=== PATIENT | female | born 1955 | race Caucasian/White ===

== ENCOUNTER → 2023-06-15 | Outpatient (CLI) | payer OTHER | END | disposition home or self-care (01) | LOC: RAH 12:41 | PROVIDERS: ATTEND Family Medicine | DX: N63.21 Unspecified lump in the left breast, upper outer quadrant (principal); N63.11 Unspecified lump in the right breast, upper outer quadrant; R92.1 Mammographic calcification found on diagnostic imaging of breast; R92.8 Other abnormal and inconclusive findings on diagnostic imaging of breast; Z98.82 Breast implant status | CPT/HCPCS: 76641; 77065; G0279; 77062; 77066 ==

== ENCOUNTER → 2023-07-26 | Outpatient (CLI) | payer OTHER ==
[2023-07-26 10:26] LABS: INR 0.94 (0.85-1.15)
[2023-07-26 10:28] LABS: PARTIAL THROMBOPLASTIN TIME 29.1 SEC (26.3-35.5)
== END | disposition home or self-care (01) ==
LOC: RAH 09:17
PROVIDERS: ATTEND Family Medicine
DX: D05.12 Intraductal carcinoma in situ of left breast (principal); N63.11 Unspecified lump in the right breast, upper outer quadrant; F17.210 Nicotine dependence, cigarettes, uncomplicated; M81.0 Age-related osteoporosis without current pathological fracture; E78.00 Pure hypercholesterolemia, unspecified; I34.1 Nonrheumatic mitral (valve) prolapse; Z79.01 Long term (current) use of anticoagulants; Z90.89 Acquired absence of other organs; Z98.890 Other specified postprocedural states; Z82.3 Family history of stroke; Z83.3 Family history of diabetes mellitus; Z80.1 Family history of malignant neoplasm of trachea, bronchus and lung; Z88.0 Allergy status to penicillin
CPT/HCPCS: 19083; 85610; 85730; 36415; 88305; 19084; 88342; 88341; 88361; A4215 ×5; A4648

== ENCOUNTER → 2024-04-05 | Outpatient (CLI) | payer OTHER | END | disposition home or self-care (01) | LOC: OIH 15:22 | PROVIDERS: ATTEND Internal Medicine | DX: J44.9 Chronic obstructive pulmonary disease, unspecified (principal); I25.10 Atherosclerotic heart disease of native coronary artery without angina pectoris; F17.200 Nicotine dependence, unspecified, uncomplicated; M47.814 Spondylosis without myelopathy or radiculopathy, thoracic region | CPT/HCPCS: 71046 ==

== ENCOUNTER → 2024-04-15 | Outpatient (CLI) | payer OTHER ==
[2024-04-15] MEDS: REGADENOSON 0.4 MG/5 ML PF SYG IVP SCH (12:44)
== END | disposition home or self-care (01) ==
LOC: RAH 08:45
PROVIDERS: ATTEND Internal Medicine
DX: I25.10 Atherosclerotic heart disease of native coronary artery without angina pectoris (principal); R94.31 Abnormal electrocardiogram [ECG] [EKG]; J44.9 Chronic obstructive pulmonary disease, unspecified; F17.200 Nicotine dependence, unspecified, uncomplicated
CPT/HCPCS: 78452; 96374; 93017; J2785; A9500 ×2

== ENCOUNTER → 2024-07-18 | Outpatient (CLI) | payer OTHER, MEDICARE ==
[~2024-07-18] MED LIST: IOHEXOL 350 MG/ML 100ML INFUS..BTL IV ONE; metoPROLOL tartRATE 1 MG/ML 5ML VIAL IV ONE
== END | disposition home or self-care (01) ==
LOC: RAH 13:28
PROVIDERS: ATTEND Student in an Organized Health Care Education/Training Program
DX: R94.39 Abnormal result of other cardiovascular function study (principal)
CPT/HCPCS: 75574; J3490; Q9967

== ENCOUNTER → 2024-07-19 | Outpatient (CLI) | payer OTHER, MEDICARE | END | disposition home or self-care (01) | LOC: SHCH 14:51 | PROVIDERS: ATTEND Student in an Organized Health Care Education/Training Program | DX: I34.1 Nonrheumatic mitral (valve) prolapse (principal) | CPT/HCPCS: 93306 ==

== ENCOUNTER → 2025-03-26 | Outpatient (CLI) | payer OTHER, MEDICARE ==
--- NOTE | 2025-03-27 08:37 | HMCIMG ---
Exam Type: [facility]IL[facility], MAMMO DX BILATERAL Clinical Information: HX OF BREAST CA Comparison: June 15, 2023 Technique: Mammogram with Tomosynthesis was performed with CC and MLO projections. FINDINGS: The breasts are heterogeneously dense, which may obscure small masses. No dominant mass or suspicious microcalcification identified. There is no nipple retraction or skin thickening. There is a cluster of microcalcifications, indeterminate, middle third left breast lateral retroareolar region which warrants further evaluation with spot magnification views and left breast ultrasound. IMPRESSION: There is a cluster of microcalcifications, indeterminate, middle third left breast lateral retroareolar region which warrants further evaluation with spot magnification views and left breast ultrasound. BI-RADS: CATEGORY 0: INCOMPLETE. NEED ADDITIONAL IMAGING EVALUATION.
== END | disposition home or self-care (01) ==
LOC: RAH 14:38
PROVIDERS: ATTEND Internal Medicine
DX: R92.333 Mammographic heterogeneous density, bilateral breasts (principal); R92.0 Mammographic microcalcification found on diagnostic imaging of breast; Z85.3 Personal history of malignant neoplasm of breast
CPT/HCPCS: 77062; 77066

== ENCOUNTER → 2025-04-15 | Outpatient (CLI) | payer OTHER, MEDICARE ==
[~2025-04-15] MED LIST changes: -IOHEXOL 350 MG/ML 100ML INFUS..BTL IV ONE; +L.AC1CAP6 PO; +LETR2.5T7 PO; +MULT-1367 PO; +ROSUVASTATIN PO; -metoPROLOL tartRATE 1 MG/ML 5ML VIAL IV ONE
[2025-04-15 08:44] LABS: IMMATURE GRANULOCYTE ABSOLUTE 0.02 K/uL (0-1); NUCLEATED RED BLOOD CELLS 0.0 % (0.0-0.19); PLATELET COUNT (AUTO) 212 K/uL (130-400); RED BLOOD CELL COUNT(AUTO) 4.50 MIL/uL (4.00-5.50); RED CELL DISTRIBUTION WIDTH 13.4 % (11.0-15.5); WHITE BLOOD COUNT (AUTO) 8.4 K/uL (4.8-10.8)
[2025-04-15 09:02] LABS: ASPARTATE AMINOTRANSFERASE 17.0 U/L (10-37); CREATININE 0.6 mg/dL (0.5-1.0); GLOMERULAR FILTR. RATE CALC 98.0 mL/min (>90); GLUCOSE,RANDOM 109.0 mg/dL (70-105); SODIUM SERUM 142.0 mmol/L (136-145); TOTAL PROTEIN, SERUM 7.5 g/dL (6.0-8.3); UREA NITROGEN, BLOOD 10.0 mg/dL (7-18)
[2025-04-15 09:25] LABS: INR 0.98 (0.85-1.15)
--- NOTE | 2025-04-15 09:25 | NUR ---
U/S GD LT BREAST BX PROCEDURE PERFORMED BY DR FAROOQ. PUNCTURE SITE LT BREAST AND PATIENT TOLERATED PROCEDURE WELL. SPECIMEN X 3 COLLECTED AND SENT TO LAB. END OF PROCEDURE AT 0905. BIOPSY NEEDLE REMOVED AND DRESSING APPLIED. BREAST TISSUE MARKER DEPLOYED. NO BLEEDING NOTED. DISCHARGE INSTRUCTIONS GIVEN TO PATIENT AND VERBALIZED UNDERSTANDING. DISCHARGED VIA AMBULATORY AAO X3 WITH NO C/O PAIN.
--- NOTE | 2025-04-15 17:19 | HMCIMG ---
Percutaneous ultrasound-guided biopsy of left breast lesion at 12:00 with placement of a biopsy marker postbiopsy. Clinical history: 60-year-old female with left breast masses the largest at 12:00 measuring 3.4 x 1.7 x 2.5 cm. The risk and benefits was explained to the procedure the risks include bleeding infection patient consented to procedure.. Procedure under ultrasound guidance the left breast lesion at 12:00 demonstrated there is multi lobulated hypoechoic lesion seen. Patient also has a breast implant. After sterile preparation. 1% Xylocaine was used for local anesthetic. Using 14-gauge Bard sheath was introduced into the left breast lesion. Using a coaxial technique with a 14-gauge Bard gun a total of 3 core biopsy specimen was obtained. Postbiopsy a biopsy marker was placed at the site. Postbiopsy CT demonstrated no bleeding. Patient tolerated procedure well. IMPRESSION: Percutaneous CT-guided biopsy of right breast mass at 12:00. Patient is to have follow-up unilateral left breast mammogram to verify the marker effacement.
== END | disposition home or self-care (01) ==
LOC: RAH 07:31
PROVIDERS: ATTEND Internal Medicine Hematology & Oncology
DX: N63.20 Unspecified lump in the left breast, unspecified quadrant (principal); C50.412 Malignant neoplasm of upper-outer quadrant of left female breast; Z79.01 Long term (current) use of anticoagulants
CPT/HCPCS: 19083; 80053; 85025; 85610; 85730; 88361; 36415; 88305; 88342; 88341; A4215 ×2; A4648

== ENCOUNTER 2025-04-22 06:10 | Day surgery (SDC) | payer OTHER, MEDICARE ==
[2025-04-22] VITALS (11 sets, daily range): BP systolic 106–139; BP diastolic 51–87; PULSE 63–86; RESP 12–18; TEMP 97.3–97.6
[~2025-04-22] VITALS: Ht 160 cm; Wt 55.8 kg
[2025-04-22] MEDS: 0.9%NACL 1000ML 1,000 ML IV ONE (06:52)
[2025-04-22] MEDS ORDERED: LIDOCAINE PF 100MG/5ML (2%) SYRINGE 5ML ONE (07:21)
== END 2025-04-22 09:08 | disposition home or self-care (01) ==
LOC: DAH 06:10 → ENDO 06:10
PROVIDERS: ATTEND Surgery
DX: R93.3 Abnormal findings on diagnostic imaging of other parts of digestive tract (principal); C44.520 Squamous cell carcinoma of anal skin; K57.30 Diverticulosis of large intestine without perforation or abscess without bleeding; K62.89 Other specified diseases of anus and rectum; K59.04 Chronic idiopathic constipation; M81.0 Age-related osteoporosis without current pathological fracture; E78.00 Pure hypercholesterolemia, unspecified; D49.0 Neoplasm of unspecified behavior of digestive system; Z86.73 Personal history of transient ischemic attack (TIA), and cerebral infarction without residual deficits; Z88.0 Allergy status to penicillin; Z87.891 Personal history of nicotine dependence; Z90.89 Acquired absence of other organs; Z98.890 Other specified postprocedural states; Z79.899 Other long term (current) drug therapy; Z53.8 Procedure and treatment not carried out for other reasons
CPT/HCPCS: 45380; J7030 ×2; J2003; J2704; A4620; A4215; A4223; A7002; A4222; A4221; A4663; A4606; J3490

== ENCOUNTER → 2025-05-08 | Outpatient (CLI) | payer OTHER, MEDICARE ==
[~2025-05-08] MED LIST changes: +IOHEXOL-350 75 ML VIAL IV ONE
--- NOTE | 2025-05-09 05:57 | HMCIMG ---
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 TECHNIQUE: Thin collimated axial CT images of the chest, abdomen, and pelvis were obtained, with sagittal and coronal reformatted images also submitted. CT scan is done according to ALARA (As Low As Reasonably Achievable). 75ml of IV contrast was administered. COMPARISON: X-ray dated April 06, 2024. FINDINGS: Chest: Mild centrilobular emphysema. No collapse or consolidation. A cyst in the right lower lobe measures 1.4 x 1.2 cm. A ground glass nodule measuring 7.5 x 7.5 mm in the apicoposterior segment of the left upper lobe. No pleural effusions. No pericardial effusion. The heart size is within normal limits. Coronary vessels and intrathoracic aorta are grossly normal. No supraclavicular or mediastinal lymphadenopathy. Few mildly enlarged lymph nodes at level I in the left axilla, the largest measuring 2.4 x 1.4 cm. No focal thyroid abnormality. No acute or suspicious osseous abnormality. Bilateral breast implants in situ. There is cutaneous thickening with two well-defined nodular lesions, with one of them showing punctate calcification in the medial aspect of the left breast. These measure approximately 2.1 x 2.0 cm and 1.4 x 1.8 cm. Abdomen and Pelvis: There is no focal abnormality appreciated within the liver, gallbladder, pancreas, spleen, adrenals, or kidneys. No discrete enhancing soft tissue thickening in the region of the anorectal canal. Mild rectosigmoid diverticulosis. There is no obvious bowel wall thickening. Bowel loops are normal in caliber without evidence of obstruction or ileus. Unremarkable appendix. There is no abnormality within the urinary bladder. The uterus is post-menopausal. No adnexal lesion is seen. Atherosclerotic changes in the aorta. No lymphadenopathy. No free fluid. The bones under view show degenerative spondylotic changes in the spine. IMPRESSIONS: No discrete enhancing soft tissue thickening is observed in the anorectal region in the present study. Uncomplicated colonic diverticula. There are two heterogeneously enhancing nodular lesions in the medial aspect of the left breast with associated left axillary lymphadenopathy. The features concerning left breast neoplasm recommend tissue biopsy from the left breast lesions and dedicated breast imaging for further evaluation. Ground glass nodule in the left upper lobe. Recommended follow-up CT chest at 12 months. Comparison with the prior chest x-ray would be difficult due to technical limitations and differences. /[place]
== END | disposition home or self-care (01) ==
LOC: RAH 09:46
PROVIDERS: ATTEND Surgery
DX: C21.0 Malignant neoplasm of anus, unspecified (principal); J43.2 Centrilobular emphysema; K57.30 Diverticulosis of large intestine without perforation or abscess without bleeding; R91.1 Solitary pulmonary nodule; J98.4 Other disorders of lung; R59.0 Localized enlarged lymph nodes; N63.20 Unspecified lump in the left breast, unspecified quadrant; R92.1 Mammographic calcification found on diagnostic imaging of breast; M47.819 Spondylosis without myelopathy or radiculopathy, site unspecified; I70.0 Atherosclerosis of aorta; Z98.82 Breast implant status
CPT/HCPCS: 71260; 74177; Q9967

== ENCOUNTER → 2025-06-27 | Outpatient (CLI) | payer OTHER, MEDICARE ==
[~2025-06-27] MED LIST changes: -IOHEXOL-350 75 ML VIAL IV ONE
--- NOTE | 2025-06-28 08:09 | HMCIMG ---
EXAMINATION: SOFT TISSUE ULTRASOUND OF THE LEFT AXILLA. CLINICAL HISTORY: History of left breast carcinoma. COMPARISON: CT chest, abdomen and pelvis dated 05/08/2025. TECHNIQUE: Transverse and longitudinal images were obtained in the left axilla. FINDINGS: There are multiple lymph nodes that measure 4.1 x 2.0 x 3.6 cm, 2.2 x 1.2 x 1.6 cm, 1.4 x 0.9 x 1.0 cm, 1.8 x 1.0 x 1.0 cm, 1.0 x 0.8 x 0.8 cm, 1.4 x 0.9 x 0.8 cm in the left axilla in craniocaudal, AP, and transverse dimensions respectively. Hilar echoes are not well visualized. There is increased vascularity. IMPRESSION: Left axillary lymphadenopathy. Recommend biopsy correlation. /[place]
== END | disposition home or self-care (01) ==
LOC: RAH 14:22
PROVIDERS: ATTEND Internal Medicine Hematology & Oncology
DX: C50.412 Malignant neoplasm of upper-outer quadrant of left female breast (principal); C77.3 Secondary and unspecified malignant neoplasm of axilla and upper limb lymph nodes; C50.812 Malignant neoplasm of overlapping sites of left female breast; C21.1 Malignant neoplasm of anal canal; R22.32 Localized swelling, mass and lump, left upper limb; Z85.3 Personal history of malignant neoplasm of breast
CPT/HCPCS: 76882

== ENCOUNTER → 2025-07-02 | Outpatient (CLI) | payer OTHER, MEDICARE ==
--- NOTE | 2025-07-02 14:19 | HMCSR ---
APPROVED REPORT EXAM: Two-dimensional and M-mode echocardiogram with Doppler and color Doppler. INDICATION ICD: C50.412, N63.20,C77.3,C50.812,C21.1 2D Dimensions IVSd0.7 (0.7-1.1cm)LVEF(%)35.6 (>50%)LVED Vol(simp.)90.0 mL LVDd5.0 (3.8-5.6cm)FS(%)17 %LVES Vol(simp.)38.0 mL PWd0.6 (0.7-1.1cm)LA (2D)3.3 (1.6-4.0cm)LVEF(%, simp.)58 % IVSs0.8 cmAo Root(2D)2.7 (2.0-3.7cm)LA ESV INDEX (BP)47.19 mL/m2 LVDs4.1 (2.5-4.0cm)LVOT diam2.1 (1.8-2.4cm) PWs1.0 cmIVC diam1.6 cm Deformation Strain Apical 4-16.5 % Apical 2-16.9 % Apical 3-13.1 % Global Strain-15.5 % M-Mode Dimensions EPSS0.7 cm LA (MM)4.1 (1.6-4.0cm) Ao Root(MM)2.5 (2.0-3.7cm) Aortic Valve AoV Vmax1.2 m/Tea Peak GR5.4 mmHgLVOT Vmax0.7 m/s AoV VTI0.3 mAo Mean GR3.1 mmHgLVOT VTI0.18 m NAS (VMAX)2.11 cm2AVA (VTI) 2.3 cm2 Mitral Valve MV E Vmax88.1 cm/sDECEL Isij663 ms MV A Onrg164.4 cm/sP 1/2 T54 ms E/A ratio0.8MVA (PHT)4.1 cm2 TDI E/E' Wtzyyc65.0E/E' Zchszab51.6 Medial E' Peak V2.67 cm/sLateral E' Peak V4.28 cm/s Pulmonary Valve PV Vmax0.7 m/sPV VTI0.14 mPV Mean GR1.1 mmHg PV Peak GR1.9 mmHgPI End [place]. Oscar 112.7 cm/s Tricuspid Valve TR Vmax2.1 m/sRAP (EST) 3 scMbWOPU40.5 mmHg TR Peak GR18.5 mmHg Left Ventricle The left ventricle is normal size. GLS -16.0% There is normal left ventricular wall thickness. The LV EF is > 55%. Stage I diastolic dysfunction. Right Ventricle The right ventricle is normal size. The right ventricular systolic function is normal. Atria The left atrium is moderately dilated. Atrial septum is bowed toward the right. The right atrium size is normal. Aortic Valve The aortic valve opens well. No aortic regurgitation is present. There is no aortic valvular stenosis . Mitral Valve The mitral valve is mildly thickened. Mild annular calcification noted. Mitral valve leaflets are mid lly prolapsed. There is no mitral valve regurgitation noted. There is no mitral valve stenosis. Tricuspid Valve The tricuspid valve leaflets open well. Anterior tricuspid valve leaflet appears mildly prolapsed. Th ere is trace of tricuspid valve regurgitation noted. Pulmonic Valve The pulmonary valve is normal in structure. There is trace of pulmonic valvular regurgitation. Great Vessels The aortic root is normal in size. The IVC is normal in size and collapses >50% with inspiration. Pericardium There is no pericardial effusion. Other Information Quality : Adequate Conclusion The LVEF is > 55%. Stage I diastolic dysfunction. GLS -16.0% The mitral valve is mildly thickened. Mild annular calcification noted. Mitral valve leaflets are mi dlly prolapsed. There is no mitral valve regurgitation noted.
== END | disposition home or self-care (01) ==
LOC: RAH 12:23
PROVIDERS: ATTEND Internal Medicine Hematology & Oncology
DX: C50.412 Malignant neoplasm of upper-outer quadrant of left female breast (principal); C77.3 Secondary and unspecified malignant neoplasm of axilla and upper limb lymph nodes; C50.812 Malignant neoplasm of overlapping sites of left female breast; C21.1 Malignant neoplasm of anal canal; N63.20 Unspecified lump in the left breast, unspecified quadrant; I34.81 Nonrheumatic mitral (valve) annulus calcification
CPT/HCPCS: 93306